=== PATIENT | male | born 1975 | race Caucasian/White ===

== ENCOUNTER 2017-02-28 08:57 | Emergency (ER) | payer BC ==
[~2017-02-28] VITALS: Ht 182.9 cm; Wt 77.5 kg
[2017-02-28 09:15] VITALS: BP 125/84
[2017-02-28] MEDS ORDERED: PERCOCET 5/31 TABLET PO (10:12)
== END 2017-02-28 10:37 | disposition home or self-care (01) ==
LOC: EME 08:57
PROC: 2W3CX1Z Immobilization of Right Lower Arm using Splint (ICD-10-PCS; principal; 2017-02-28)
DX: S62.304A Unspecified fracture of fourth metacarpal bone, right hand, initial encounter for closed fracture (principal); S62.306A Unspecified fracture of fifth metacarpal bone, right hand, initial encounter for closed fracture; W23.1XXA Caught, crushed, jammed, or pinched between stationary objects, initial encounter; Y93.89 Activity, other specified; F17.200 Nicotine dependence, unspecified, uncomplicated
CPT/HCPCS: 73130; 99281; 99284